=== PATIENT | female | born 1995 | race Caucasian/White ===

== ENCOUNTER 2021-04-05 10:53 | Inpatient (IN) ==
[2021-04-05] MEDS ORDERED: OXYTOCIN 30 UNITS/500 ML BAG IV PRN ×2 (11:06)
[2021-04-05] MEDS ORDERED: PATIENT'S HEIGHT AND/OR WEIGHT NEEDED SCH (11:15)
[2021-04-05 12:16] LABS: Hematocrit (blood only) 37.9 % (37-47); Mean Corpuscular Hemoglobin 32.3 pg (25-34); Mean Corpuscular Hgb Conc 34.3 g/dL (32-36); Mean Corpuscular Volume 94.3 fL (80-100); RDW Coefficient of Variation 12.9 % (11.5-14.5); RDW Standard Deviation 44.5 fL (36.4-46.3); Red Blood Count 4.02 M/uL (4.2-5.4); White Blood Count 8.28 K/uL (4.8-10.8)
[2021-04-05 12:20] LABS: Mean Platelet Volume 13.1 fL (7.4-10.4); Platelet Count 109 K/uL (130-400)
[2021-04-05 12:22] LABS: Platelet Estimate Decreased (Normal)
[2021-04-05] MEDS: LACTATED RINGER'S 1,000 ML IV PRN ×4 (13:25→23:02)
--- NOTE | 2021-04-05 13:26 | History & Physical Report ---
Date of Service April 05, 2021 Assessment & Plan (1) Encounter for supervision in primigravida, antepartum: Plan: cervical balloon placed and pitocin induction begun per protocol epidural analgesia when requested anticipate vaginal Admission and Anticipated Discharge Date Admission Date: April 05, 2021 History of Present Illness Primary Care Provider: NO PCP Patient is a 26 yo white female EDC 03/28/21 who presents at 41 1/7 weeks for induction of labor because of post term . was complicated because of IVF. Growth scans have been appropriate. GBS -negative blood type- A negative Allergies Allergy/AdvReac Type Severity Reaction Status Date / Time No Known Drug Allergies Allergy Verified 04/04/21 12:58 Home Medications Medication Instructions Recorded Confirmed Type cholecalciferol (vitamin D3) 25 25 mcg PO DAILY 08/30/20 04/05/21 History mcg (1,000 unit) capsule prenat.vits,zbigniew,hzl-rqsc-gfxev 1 tab PO DAILY 08/30/20 04/05/21 History Patient History Medical History Migraine with aura Ovarian cyst Surgical History S/P ACL repair Family History Family/Other Hypertension Mother Dyslipidemia Denies family history of Ovarian cancer Prostate cancer Myocardial infarction Breast cancer Colorectal cancer Social History (Updated 08/30/20 @ 10:03 by Eli Damian) Smoking Status: Never smoker Second Hand Exposure: No; Hx Alcohol Use: Yes Hx Substance Use: No Preferred Language: Divehi Communication Ability: Effective Fisher Purse Seine Required: No Beliefs That Will Affect Care: None marital status: marital status details: Winston (28) [phone] Current Living Situation: Spouse Current Living Situation Comment: lives with spouse, 2 dogs. 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 Other Information That Helps Us Care for You: No Feels Safe at Home: Yes Safety Concerns: Feels Safe At This Time Childhood Exposure to Second-Hand Smoke: No caffeine: Yes Dental Care, Regularly: Yes Physical Activity Frequency: 1-2 Times per Week Seatbelt Use: always Sunscreen Use: Yes Assistive Devices: None Review of Systems All systems reviewed & are unremarkable except as noted in HPI & below Physical Exam Constitutional: WD/WN, vitals as above Respiratory: normal respiratory effort, lungs clear to auscultation Cardiovascular: RRR, no murmur, no edema Psychiatric: A+Ox3, euthymic affect Genitourinary: OB Exam Abdomen: + vertex and + estimated weight (6-7 pounds) Manual OB Exam: + cervical dilation 1 cm, + cervical effacement 80% and + station 0 OB Exam Monitor Tracing: + external FHT monitor used, + external uterine monitor used, + category I and + normal FHT variability speculum exam: cervix visualized and flores catheter inserted in to the cervix easily and the balloon was filled with 40cc of water. she tolerated the procedure well. Flores catheter was expelled within 30 minutes of insertion. cervix now 3cm/90%/0 Results & Data ([facility]) Vital Signs (Past 12 Hours) Vital Signs Temp Pulse Resp BP 04/05/21 11:05 98.8 F 69 20 130/94 04/05/21 11:02 98.8 F 69 18 130/94 Code Status & VTE Plan VTE Prophylaxis Plan VTE Prophylaxis will be ordered: No Coding Level of Care Code None Diagnoses Encounter for supervision in primigravida, antepartum Z34.00
[2021-04-05] MEDS ORDERED: SODIUM CHLORIDE 0.9% INJ 10 ML VIAL ONE (18:26)
[2021-04-05] MEDS ORDERED: ePHEDrine sulfate 50 MG/ML AMP ONE (18:26)
[2021-04-05] MEDS ORDERED: fentaNYL citrate 100 MCG/2 ML VIAL ONE (18:26)
[2021-04-05] MEDS ORDERED: fentaNYL 2MCG/ML ROPIVACAINE 1.25MG/ML 100 ML BAG EPI ONE (18:27)
[2021-04-05] MEDS ORDERED: NALOXONE HCL 0.4 MG/1 ML VIAL/CARP IV PRN (19:17)
[2021-04-05] MEDS ORDERED: ONDANSETRON INJ 2 MG/ML 2 ML VIAL IV PRN (19:17)
[2021-04-05] MEDS ORDERED: diphenhydrAMINE 50 MG/ML VIAL IV PRN (19:17)
[2021-04-05] MEDS ORDERED: ePHEDrine sulfate 50 MG/ML AMP IV PRN (19:17)
[2021-04-05] MEDS ORDERED: NALOXONE HCL 1 MG in SODIUM CHLORIDE 0.9% 1000ML 1,000 ML IV PRN (19:17)
[2021-04-05] MEDS ORDERED: NALBUPHINE HCL INJ 10 MG/ML AMP IV PRN (19:17)
--- NOTE | 2021-04-05 19:17 | Anesthesiology Consultation ---
Date of Service April 05, 2021 Assessment & Plan ASA ASA2 Proposed Anesthesia Anesthesia Type: Labor Epidural Risk / Benefits Reviewed With: PT / POA / Parent / Guardian, Accepts Plan and Informed Consent Obtained History Height/Weight Height: 5 ft 2 in Weight: 64.41 kg Allergies Allergy/AdvReac Type Severity Reaction Status Date / Time No Known Drug Allergies Allergy Verified 04/04/21 12:58 Medications Home Medications Medication Instructions Recorded Confirmed Last Taken cholecalciferol (vitamin D3) 25 25 mcg PO DAILY 08/30/20 04/05/21 04/04/21 mcg (1,000 unit) capsule prenat.vits,zbigniew,lkv-hyep-bxzog 1 tab PO DAILY 08/30/20 04/05/21 04/04/21 Active Medications Generic Name Dose Route Start Last Admin Trade Name Freq PRN Reason Stop Dose Admin Oxytocin 30 units in 500 mls @ 3 mls/hr 04/05/21 11:06 04/05/21 14:08 Pitocin IV 04/07/21 11:05 0.18 units/hr .Q24H PRN 3 mls/hr Labor Induction/Augmentation Titration Protocol 0.18 UNITS/HR Lactated Ringer's 1,000 mls @ 125 mls/hr 04/05/21 11:06 04/05/21 18:57 Lr IV 04/07/21 11:05 999 mls/hr .Q8H PRN Administration L&D Protocol Protocol Past Medical History Medical History Migraine with aura Ovarian cyst Exercise / Class Metabolic Activity II 4-5 Yardwork/Stairs/Walk up hill Past Family History Family History Family/Other Hypertension Mother Dyslipidemia Denies family history of Ovarian cancer Prostate cancer Myocardial infarction Breast cancer Colorectal cancer Past Surgical History Surgical History S/P ACL repair Past Anesthesia History No Hx of Anesthesia Complications and No Family Hx of Anesthesia Complications History of PONV No Hx of PONV and No Hx of Motion Sickness Social History Smoking Status: Never smoker Hx Alcohol Use: Yes Hx Substance Use: No Review of Systems denies fever/cough/ colds/ chest pain/ SOB/ OPHELIA denies OPHELIA Physical Exam Vital Signs Last Vital Signs Temp 37 C 04/05/21 19:00 Pulse 91 H 04/05/21 19:48 Resp 18 04/05/21 19:00 BP 129/76 04/05/21 19:41 Pulse Ox 98 04/05/21 19:48 ENMT Mouth: no TMJ abnormality and no dentition abnormality Thyromental Distance: > or= 3.5 Finger Breadths Mallampati Class: II Neck neck extension not limited Respiratory normal respiratory effort; no respiratory distress Auscultation: lungs clear to auscultation bilaterally Cardiovascular Rate/Rhythm: regular rate and regular rhythm Neurologic moves all extremities Psychiatric Orientation: alert and oriented x 3 Testing Laboratory Results 04/05/21 11:22
[2021-04-05] MEDS: BUPIVACAINE 0.25% 30 ML VIAL ONE ×2 (19:34→19:38)
[2021-04-05] MEDS: fentaNYL 2MCG/ML ROPIVACAINE 1.25MG/ML 100 ML BAG EPI PRN (23:32)
[2021-04-06] MEDS: fentaNYL 2MCG/ML ROPIVACAINE 1.25MG/ML 100 ML BAG EPI PRN ×2 (00:10→04:16)
[2021-04-06] MEDS ORDERED: BUPIVACAINE 0.25% 30 ML VIAL ONE (00:34)
[2021-04-06] MEDS ORDERED: fentaNYL citrate 100 MCG/2 ML VIAL ONE (00:34)
[2021-04-06] MEDS ORDERED: SODIUM CHLORIDE 0.9% INJ 10 ML VIAL ONE (00:35)
[2021-04-06] MEDS ORDERED: ONDANSETRON INJ 2 MG/ML 2 ML VIAL IV PRN ×2 (01:08→11:51)
--- NOTE | 2021-04-06 01:10 | Communication Note ---
Date of Service: April 06, 2021 Patient stated having increasing labor pains. Patient's epidural was bolused with fentanyl 75mcg and 0.125% bupivacaine 5 mL. Patient stated having improved labor pains. VSS throughout.
[2021-04-06] MEDS: LACTATED RINGER'S 1,000 ML IV PRN ×3 (01:57→08:30)
[2021-04-06] MEDS ORDERED: CALCIUM CARBONATE 500 MG CHEWABLE TAB ONE (05:21)
[2021-04-06] MEDS ORDERED: CITRIC ACID/SODIUM CITRATE 15 ML UDC PO SCH (06:00)
--- NOTE | 2021-04-06 08:08 | Obstetrical Progress Note ---
Date of Service April 06, 2021 Assessment & Plan (1) Failed induction of labor: Plan: after pushing effectively for 3 1/2 hours through adequate contractions, with no descent of the head below 0/+1 station, we will proceed with primary LTCS consents signed after the procedure and risks were reviewed with the patient and her . Admission and Anticipated Discharge Date Admission Date: April 05, 2021 Subjective Patient progressed to full dilation and now has been pushing for 3 1/2 hours with no descent of the head. After reviewing options, C/S seems most prudent management as the vertex is still at 0/+1 station and not amenable to vaccuum assistance. Patient and her are agreeable to this plan after all of their questions were answered to their satisfaction. Review of Systems Review of Systems: All systems reviewed & are unremarkable except as noted in HPI & below Physical Exam Constitutional: WD/WN, vitals as above Psychiatric: A+Ox3, euthymic affect Genitourinary: OB Exam Abdomen: + vertex Manual OB Exam: + cervical dilation 10 cm, + cervical effacement 100% and + station 0 Results & Data ([facility]) Vital Signs (Past 12 Hours) Vital Signs Temp Pulse Resp BP Pulse Ox 04/06/21 07:58 75 97 04/06/21 07:57 88 137/95 04/06/21 07:53 84 98 04/06/21 07:48 83 97 04/06/21 07:43 77 95 04/06/21 07:41 89 126/90 04/06/21 07:38 90 95 04/06/21 07:33 83 97 04/06/21 07:28 74 97 04/06/21 07:27 107 H 131/94 04/06/21 07:23 109 H 94 04/06/21 07:18 78 97 04/06/21 07:13 72 97 04/06/21 07:11 98.6 F 69 20 131/89 04/06/21 07:08 87 97 04/06/21 07:03 98 H 97 04/06/21 06:58 91 H 96 04/06/21 06:56 83 128/91 04/06/21 06:55 101 H 83 L 04/06/21 06:53 96 H 97 04/06/21 06:48 84 96 04/06/21 06:43 94 H 96 04/06/21 06:41 87 125/90 04/06/21 06:38 74 95 04/06/21 06:33 80 97 04/06/21 06:28 94 H 97 04/06/21 06:27 111 H 128/89 04/06/21 06:23 71 95 04/06/21 06:18 74 96 04/06/21 06:13 98 H 96 04/06/21 06:11 108 H 129/86 04/06/21 06:08 109 H 97 04/06/21 06:03 87 95 04/06/21 06:00 20 04/06/21 05:58 92 H 94 04/06/21 05:56 89 136/75 04/06/21 05:53 120 H 96 04/06/21 05:48 124 H 96 04/06/21 05:45 80 88 L 04/06/21 05:43 73 95 04/06/21 05:41 82 131/89 04/06/21 05:38 105 H 94 04/06/21 05:33 82 96 04/06/21 05:30 24 04/06/21 05:28 94 H 97 04/06/21 05:26 75 132/81 04/06/21 05:23 95 H 95 04/06/21 05:18 86 97 04/06/21 05:13 87 96 04/06/21 05:12 101 H 140/84 04/06/21 05:08 105 H 95 04/06/21 05:03 90 96 04/06/21 05:00 98.4 F 04/06/21 04:58 78 96 04/06/21 04:56 75 132/85 04/06/21 04:53 89 96 04/06/21 04:48 72 96 04/06/21 04:43 75 96 04/06/21 04:41 80 133/83 04/06/21 04:38 115 H 96 04/06/21 04:36 117 H 139/82 04/06/21 04:33 139 H 96 04/06/21 04:30 22 04/06/21 04:28 92 H 96 04/06/21 04:23 103 H 97 04/06/21 04:19 88 133/81 04/06/21 04:18 83 98 04/06/21 04:15 100 H 146/70 H 04/06/21 04:13 80 97 04/06/21 04:09 82 134/77 04/06/21 04:08 81 98 04/06/21 04:04 83 125/87 04/06/21 04:03 86 97 04/06/21 03:59 72 134/87 04/06/21 03:58 72 96 04/06/21 03:53 73 132/86 96 04/06/21 03:48 71 142/89 H 97 04/06/21 03:44 67 133/86 04/06/21 03:43 68 138/91 96 04/06/21 03:39 68 139/85 04/06/21 03:38 70 96 04/06/21 03:35 83 136/95 04/06/21 03:33 80 96 04/06/21 03:30 20 04/06/21 03:28 70 129/84 97 04/06/21 03:25 63 138/80 04/06/21 03:23 76 95 04/06/21 03:18 72 131/85 97 04/06/21 03:14 71 131/83 04/06/21 03:13 69 95 04/06/21 03:11 98.2 F 04/06/21 03:08 86 127/84 97 04/06/21 03:04 70 144/93 H 04/06/21 03:03 75 97 04/06/21 03:00 18 04/06/21 02:58 78 146/97 H 98 04/06/21 02:54 71 142/90 H 04/06/21 02:53 72 97 04/06/21 02:48 79 137/87 96 04/06/21 02:44 73 135/86 04/06/21 02:43 75 96 04/06/21 02:38 87 139/86 96 04/06/21 02:33 89 97 04/06/21 02:30 20 04/06/21 02:28 83 142/93 H 100 04/06/21 02:23 77 96 04/06/21 02:20 69 135/86 04/06/21 02:18 69 96 04/06/21 02:14 69 139/90 04/06/21 02:13 70 97 04/06/21 02:09 71 142/90 H 04/06/21 02:08 69 95 04/06/21 02:04 67 134/84 04/06/21 02:03 68 95 04/06/21 02:01 73 93 04/06/21 02:00 18 04/06/21 01:59 75 132/92 04/06/21 01:58 70 98 04/06/21 01:54 67 149/94 H 04/06/21 01:53 68 98 04/06/21 01:48 71 147/98 H 97 04/06/21 01:43 79 149/96 H 99 04/06/21 01:38 67 139/91 97 04/06/21 01:34 63 147/88 H 04/06/21 01:33 68 99 04/06/21 01:31 67 135/89 04/06/21 01:30 20 04/06/21 01:28 73 97 04/06/21 01:24 74 141/97 H 04/06/21 01:23 75 96 04/06/21 01:18 76 132/90 95 04/06/21 01:14 78 140/95 04/06/21 01:13 85 97 04/06/21 01:09 81 135/93 04/06/21 01:08 86 97 04/06/21 01:03 90 138/98 98 04/06/21 01:00 18 04/06/21 00:58 72 96 04/06/21 00:55 83 142/74 H 04/06/21 00:53 83 97 04/06/21 00:50 97.9 F 04/06/21 00:49 65 146/85 H 04/06/21 00:48 69 99 04/06/21 00:43 67 135/88 98 04/06/21 00:39 67 127/78 04/06/21 00:38 73 96 04/06/21 00:33 72 126/81 99 04/06/21 00:30 22 04/06/21 00:28 68 124/70 96 04/06/21 00:24 92 H 154/106 H 04/06/21 00:23 93 H 98 04/06/21 00:19 82 144/85 H 04/06/21 00:18 83 97 04/06/21 00:13 79 97 04/06/21 00:09 67 139/93 04/06/21 00:08 77 98 04/06/21 00:04 74 136/93 04/06/21 00:03 73 97 04/06/21 00:00 18 04/05/21 23:58 93 H 137/92 96 04/05/21 23:54 71 144/93 H 04/05/21 23:53 73 98 04/05/21 23:49 79 135/91 04/05/21 23:48 77 97 04/05/21 23:43 85 139/83 97 04/05/21 23:39 75 122/78 04/05/21 23:38 79 99 04/05/21 23:34 70 126/78 04/05/21 23:33 74 97 04/05/21 23:30 20 04/05/21 23:28 77 123/73 97 04/05/21 23:27 97 H 122/77 04/05/21 23:23 92 H 97 04/05/21 23:18 80 98 04/05/21 23:13 78 128/89 98 04/05/21 23:09 69 133/90 04/05/21 23:08 74 98 04/05/21 23:04 72 130/85 04/05/21 23:03 73 99 04/05/21 22:58 93 H 98 04/05/21 22:53 81 99 04/05/21 22:49 67 134/94 04/05/21 22:48 65 99 04/05/21 22:44 68 141/91 H 04/05/21 22:43 72 98 04/05/21 22:39 82 142/92 H 04/05/21 22:38 72 97 04/05/21 22:34 122 H 138/96 04/05/21 22:33 120 H 97 04/05/21 22:30 16 04/05/21 22:28 80 134/83 99 04/05/21 22:24 88 132/88 04/05/21 22:23 68 98 04/05/21 22:20 65 125/85 04/05/21 22:18 66 98 04/05/21 22:13 71 129/86 98 04/05/21 22:09 75 128/79 04/05/21 22:08 69 98 04/05/21 22:04 75 137/92 04/05/21 22:03 75 99 04/05/21 22:00 18 04/05/21 21:59 67 126/85 04/05/21 21:58 68 98 04/05/21 21:53 66 125/85 99 04/05/21 21:49 69 128/89 04/05/21 21:48 70 98 04/05/21 21:43 88 127/91 97 04/05/21 21:38 68 132/87 99 04/05/21 21:34 86 134/92 04/05/21 21:33 70 99 04/05/21 21:30 16 04/05/21 21:29 63 129/85 04/05/21 21:28 63 100 04/05/21 21:23 65 122/87 100 04/05/21 21:19 63 121/85 04/05/21 21:18 63 98 04/05/21 21:14 75 124/89 04/05/21 21:13 72 142/100 H 98 04/05/21 21:09 98.2 F 04/05/21 21:08 65 131/86 99 04/05/21 21:04 64 126/82 04/05/21 21:03 64 100 04/05/21 21:00 20 04/05/21 20:59 64 130/82 04/05/21 20:58 65 99 04/05/21 20:54 63 128/83 04/05/21 20:53 63 98 04/05/21 20:49 62 126/84 04/05/21 20:48 62 98 04/05/21 20:43 72 124/85 98 04/05/21 20:38 77 141/84 H 98 04/05/21 20:34 117 H 143/87 H 04/05/21 20:33 102 H 99 04/05/21 20:30 20 04/05/21 20:29 65 135/80 04/05/21 20:28 63 99 04/05/21 20:24 66 126/81 04/05/21 20:23 66 98 04/05/21 20:19 64 125/80 04/05/21 20:18 64 99 04/05/21 20:13 66 136/77 99 04/05/21 20:09 79 153/97 H 04/05/21 20:08 71 99 04/05/21 20:04 83 136/88 04/05/21 20:03 95 H 99 PG Care Time/CCT Total # of Minutes Spent Total Time Spent with Patient: Total time spent is greater than 50% in coordin ation of care (as documented) at patient's floor/unit and/or counseling patient: Coding Level of Care Code None Diagnoses Failed induction of labor O61.9
[2021-04-06] MEDS ORDERED: ceFAZolin 2000MG 2,000 MG/15 ML SYR IV SCH (08:30)
--- NOTE | 2021-04-06 08:56 | Communication Note ---
Date of Service: April 06, [address] Francisco. She is aware I am assuming care. Ts categ 1. She is comfortable. She has pushed for 3.5hr and no descent and wants to proceed with c/s at this point. OR being readied and she denies questions.
[2021-04-06] MEDS ORDERED: MoRPHine SULFATE PF 1 MG/ML 10 ML AMP/VIAL ONE (09:45)
[2021-04-06] MEDS ORDERED: ONDANSETRON INJ 2 MG/ML 2 ML VIAL ONE (10:41)
[2021-04-06] MEDS ORDERED: LIDOCAINE 2%/EPINEPHRINE 1:200,000 20 ML SDV ONE (10:41)
[2021-04-06] MEDS ORDERED: KETOROLAC 30 MG/ML VIAL ONE (10:41)
--- NOTE | 2021-04-06 10:41 | Post Operative Brief Note ---
PG Immediate Post Op with CF Date of Surgery April 06, 2021 Pre & Post Diagnosis Operation Date: 04/06/21 09:05 Pre-Op Diagnosis: 41 weeks iup, Induction of labor, Arrest of descent Post-Op Diagnosis: Same as pre-op I identified the patient and participated in the time-out.: Yes Procedure Operation Date: 04/06/21 09:05 Actual Procedures p Primary Low Transverse Section in LD; Delivery of live female child at 1002 (Main OR #3)(Bilateral) - Beata Knapp MD, FACOG Surgeon Beata Knapp MD, FACOG Construction Contractor Maryam Estimated Blood Loss 500 Findings Consistent with Post-Op Diagnosis (viable female apgars 8,9 normal uterus, tubes and ovaries bilaterally. LOP position, nuchal x 2. ) Fluids 1500 Specimens Specimen Description: Placenta-hold Cord Blood Drains Brian Catheter (Inserted in LD prior to patient coming to OR. Patent and draining concentrated yellow urine throughout procedure.) Anesthesia Type Spinal Complications none Disposition Accompanied Patient To Recovery: No Disposition: L&D
[2021-04-06] MEDS ORDERED: BENZOCAINE 20% AER SPR 82.5 GM CAN EXT PRN (11:35)
[2021-04-06] MEDS ORDERED: MAGNESIUM HYDROXIDE SUSP 30 ML UDC PO PRN (11:35)
[2021-04-06] MEDS ORDERED: SENNA 8.6 MG TAB PO PRN (11:35)
[2021-04-06] MEDS ORDERED: SUPERCREAM 0.870% 15 GM JAR EXT PRN (11:35)
[2021-04-06] MEDS ORDERED: HYDROCORTISONE ACETATE 25 MG SUPP PR PRN (11:35)
[2021-04-06] MEDS ORDERED: LACTATED RINGER'S 1,000 ML IV SCH (11:35)
[2021-04-06] MEDS ORDERED: DIPHTHERIA/TETANUS/PERTUSSIS 0.5 ML SYR/VIAL IM ONE (11:35)
--- NOTE | 2021-04-06 11:42 | Operative Report ---
PG Post Operative Report Pre & Post Diagnosis Operation Date: 04/06/21 09:05 Pre-Op Diagnosis: 1. 41+wk iup 2. induction of labor 3. Arrest of descent Post-Op Diagnosis: Same as pre-op I identified the patient and participated in the time-out.: Yes Procedure Operation Date: 04/06/21 09:05 Primary Low Transverse Section. Surgeon Beata Knapp MD, FACOG Interior Assemblies Developer [employer] Maryam Estimated Blood Loss 500 Findings Consistent with Post-Op Diagnosis (viable female apgars 8,9 normal uterus, tubes and ovaries bilaterally. LOP position, nuchal x 2. ) Fluids 1500 Specimens placenta, hold, cord blood sent Drains flores Anesthesia Type Spinal Complications none Disposition Accompanied Patient To Recovery: No Disposition: L&D Indications 26yo at 41+wks mark was admitted yesterday for planned induction due to postdates. She progressd to complete and was pushing since am of day of delivery. Unfortunately after 3.5hrs of pushing, no descent of station noted, still 0 station. Counseled for recommendation for section and she and partner agreed. Description of Procedure The patient was taken to the operating room and identified. After adequate anesthesia was obtained, she was placed in the supine position with a leftward tilt on the operating table and prepped and draped in the usual sterile fashion. A flores catheter had already been placed. The knife was used to create a Pfannensteil skin incision that was carried down to the underlying layer of fascia. The fascia was nicked in the midline and this opening was extended laterally using Kelly scissors. Obed clamps were placed on the superior and inferior aspect of the fascial incision tenting it upward and the underlying rectus muscles were dissected off the overlying fascia both sharply and bluntly using Kelly scissors. The rectus muscles were bluntly in the midline. The peritoneal cavity was bluntly entered into. This opening was stretched. The bladder blade was placed. The vesicouterine peritoneum was elevated and opened up into and the bladder flap was created digitally and bladder blade was replaced. The knife was used to create a hysterotomy and this opening was stretched. The operators hand was placed through the hysterotomy and the bladder blade was removed. The head was elevated and flexed and with fundal pressure the head was delivered. The shoulders and body were rapidly delivered. The cord was clamped and cut and the infant's mouth and nares were bulb suction. The infant was handed off to the awaiting pediatricians. Cord blood was obtained. The placenta was manually expressed. The uterus was exteriorized and cleared of all clots and debris. Dilute IV Pitocin was begun. The uterine tone was improving. The hysterotomy was closed in a running interlocking fashion using 0 Vicryl followed by a second imbricating layer of 0 Vicryl. The hysterotomy was not hemostatic. Figure of eight sutures of 2-0 vicryl were placed left of midline and hemostasis was then adequate. The pelvis was suctioned. The uterus was returned to the abdomen. The gutters were cleared of all clots and debris. The hysterotomy was reinspected and noted to be hemostatic. The fascia was then closed in running fashion using 0 Vicryl. The subcutaneous fat was copiously irrigated and reapproximated using 2-0 chromic. The skin was closed in a subcuticular fashion using 4-0 Vicryl. Dermabond was applied. At this point the procedure was terminated. The patient was transferred to the recovery room in stable condition. All sponge, lap and needle counts are correct x2. I attest to the content of the Intraoperative Record and any orders documented therein. Any exceptions are noted below. OB Procedure charges OB Charges [id number] C/S
[2021-04-06] MEDS ORDERED: NALOXONE HCL 0.4 MG/1 ML VIAL/CARP IV PRN (11:51)
[2021-04-06] MEDS ORDERED: LACTATED RINGER'S 500 ML IV PRN (11:51)
[2021-04-06] MEDS ORDERED: diphenhydrAMINE 50 MG/ML VIAL IV PRN (11:51)
[2021-04-06] MEDS ORDERED: MoRPHine SULFATE 2 MG/ML CARP IV PRN (11:51)
[2021-04-06] MEDS ORDERED: HYDROmorphone INJ 0.5 MG/0.5 ML SYR IV PRN (11:51)
[2021-04-06] MEDS ORDERED: NALOXONE HCL 0.08 MG in SYRINGE 1.8 ML IV PRN (11:51)
[2021-04-06] MEDS ORDERED: MoRPHine SULFATE PF 1 MG/ML 10 ML AMP/VIAL INT SPINAL ONE (11:51)
[2021-04-06] MEDS ORDERED: NALBUPHINE HCL INJ 10 MG/ML AMP IV PRN (11:51)
[2021-04-06] MEDS ORDERED: ePHEDrine sulfate 50 MG/ML AMP IV PRN (11:51)
[2021-04-06] MEDS ORDERED: MEPERIDINE HCL 25 MG/ML CARP/VIAL IV PRN (11:51)
[2021-04-06] MEDS ORDERED: NALOXONE HCL 1 MG in SODIUM CHLORIDE 0.9% 1000ML 1,000 ML IV PRN (11:51)
[2021-04-06] MEDS ORDERED: PROMETHAZINE HCL 6.25 MG in SODIUM CHLORIDE 0.9% 50 ML IV PRN (11:51)
--- NOTE | 2021-04-06 11:53 | Anesthesia Procedure Note ---
Date of Service April 06, 2021 Anesthesia Post Epidural Note Vital Signs Vital Signs: Temp Pulse Resp BP Pulse Ox 36.9 C 80 16 139/87 96 04/06/21 10:50 04/06/21 11:51 04/06/21 11:41 04/06/21 11:51 04/06/21 11:48 Pain Intensity Bilateral Abdomen: Pain Intensity: 3 Notes Mental Status: alert / awake / arousable Nausea / Vomiting: adequately controlled Pain: adequately controlled Airway Patency, RR, SpO2: stable & adequate BP & HR: stable & adequate Hydration State: stable & adequate Neuraxial Anesthesia: was administered and sensory block is resolving Anesthetic Complications: no major complications apparent and Pt Satisfied with anesthetic care Epidural: Removed without complications and With tip intact
--- NOTE | 2021-04-06 11:54 | Anesthesiology Progress Note ---
Date of Service April 06, 2021 Anesthesia Post Procedure Vital Signs Vital Signs: Temp Pulse Pulse Resp BP BP Pulse Ox 04/06/21 11:51 80 139/87 04/06/21 11:48 88 96 04/06/21 11:43 70 97 04/06/21 11:41 73 16 130/82 04/06/21 11:38 84 98 04/06/21 11:33 79 98 04/06/21 11:31 83 16 125/79 04/06/21 11:28 81 97 04/06/21 11:23 82 98 04/06/21 11:22 86 20 134/84 04/06/21 11:18 91 H 98 04/06/21 11:13 79 98 04/06/21 11:11 81 20 122/68 98 04/06/21 11:08 83 98 04/06/21 11:03 84 83 20 120/73 120/73 98 04/06/21 10:58 87 97 04/06/21 10:53 86 98 04/06/21 10:51 88 129/75 04/06/21 10:50 36.9 C 85 20 129/75 04/06/21 09:18 89 97 04/06/21 09:13 77 97 04/06/21 09:11 80 136/94 04/06/21 09:08 83 97 04/06/21 09:03 86 97 04/06/21 08:58 91 H 97 04/06/21 08:56 93 H 146/106 H 04/06/21 08:53 98 H 97 04/06/21 08:41 36.9 C 78 20 138/93 04/06/21 08:26 80 144/97 H 04/06/21 08:15 75 139/98 04/06/21 07:58 75 97 04/06/21 07:57 88 137/95 04/06/21 07:53 84 98 04/06/21 07:48 83 97 04/06/21 07:43 77 95 04/06/21 07:41 89 126/90 04/06/21 07:38 90 95 04/06/21 07:33 83 97 04/06/21 07:28 74 97 04/06/21 07:27 107 H 131/94 04/06/21 07:23 109 H 94 04/06/21 07:18 78 97 04/06/21 07:13 72 97 04/06/21 07:11 37 C 69 20 131/89 04/06/21 07:08 87 97 04/06/21 07:03 98 H 97 04/06/21 06:58 91 H 96 04/06/21 06:56 83 128/91 04/06/21 06:55 101 H 83 L 04/06/21 06:53 96 H 97 04/06/21 06:48 84 96 04/06/21 06:43 94 H 96 04/06/21 06:41 87 125/90 04/06/21 06:38 74 95 04/06/21 06:33 80 97 04/06/21 06:28 94 H 97 04/06/21 06:27 111 H 128/89 04/06/21 06:23 71 95 04/06/21 06:18 74 96 04/06/21 06:13 98 H 96 04/06/21 06:11 108 H 129/86 04/06/21 06:08 109 H 97 04/06/21 06:03 87 95 04/06/21 06:00 20 04/06/21 05:58 92 H 94 04/06/21 05:56 89 136/75 04/06/21 05:53 120 H 96 04/06/21 05:48 124 H 96 04/06/21 05:45 80 88 L 04/06/21 05:43 73 95 04/06/21 05:41 82 131/89 04/06/21 05:38 105 H 94 04/06/21 05:33 82 96 04/06/21 05:30 24 04/06/21 05:28 94 H 97 04/06/21 05:26 75 132/81 04/06/21 05:23 95 H 95 04/06/21 05:18 86 97 04/06/21 05:13 87 96 04/06/21 05:12 101 H 140/84 04/06/21 05:08 105 H 95 04/06/21 05:03 90 96 04/06/21 05:00 36.9 C 22 04/06/21 04:58 78 96 04/06/21 04:56 75 132/85 04/06/21 04:53 89 96 04/06/21 04:48 72 96 04/06/21 04:43 75 96 04/06/21 04:41 80 133/83 04/06/21 04:38 115 H 96 04/06/21 04:36 117 H 139/82 04/06/21 04:33 139 H 96 04/06/21 04:30 22 04/06/21 04:28 92 H 96 04/06/21 04:23 103 H 97 04/06/21 04:19 88 133/81 04/06/21 04:18 83 98 04/06/21 04:15 100 H 146/70 H 04/06/21 04:13 80 97 04/06/21 04:09 82 134/77 04/06/21 04:08 81 98 04/06/21 04:04 83 125/87 04/06/21 04:03 86 97 04/06/21 03:59 72 134/87 04/06/21 03:58 72 96 04/06/21 03:53 73 132/86 96 04/06/21 03:48 71 142/89 H 97 04/06/21 03:44 67 133/86 04/06/21 03:43 68 138/91 96 04/06/21 03:39 68 139/85 04/06/21 03:38 70 96 04/06/21 03:35 83 136/95 04/06/21 03:33 80 96 04/06/21 03:30 20 04/06/21 03:28 70 129/84 97 04/06/21 03:25 63 138/80 04/06/21 03:23 76 95 04/06/21 03:18 72 131/85 97 04/06/21 03:14 71 131/83 04/06/21 03:13 69 95 04/06/21 03:11 36.8 C 04/06/21 03:08 86 127/84 97 04/06/21 03:04 70 144/93 H 04/06/21 03:03 75 97 04/06/21 03:00 18 04/06/21 02:58 78 146/97 H 98 04/06/21 02:54 71 142/90 H 04/06/21 02:53 72 97 04/06/21 02:48 79 137/87 96 04/06/21 02:44 73 135/86 04/06/21 02:43 75 96 04/06/21 02:38 87 139/86 96 04/06/21 02:33 89 97 04/06/21 02:30 20 04/06/21 02:28 83 142/93 H 100 04/06/21 02:23 77 96 04/06/21 02:20 69 135/86 04/06/21 02:18 69 96 04/06/21 02:14 69 139/90 04/06/21 02:13 70 97 04/06/21 02:09 71 142/90 H 04/06/21 02:08 69 95 04/06/21 02:04 67 134/84 04/06/21 02:03 68 95 04/06/21 02:01 73 93 04/06/21 02:00 18 04/06/21 01:59 75 132/92 04/06/21 01:58 70 98 04/06/21 01:54 67 149/94 H 04/06/21 01:53 68 98 04/06/21 01:48 71 147/98 H 97 04/06/21 01:43 79 149/96 H 99 04/06/21 01:38 67 139/91 97 04/06/21 01:34 63 147/88 H 04/06/21 01:33 68 99 04/06/21 01:31 67 135/89 04/06/21 01:30 20 04/06/21 01:28 73 97 04/06/21 01:24 74 141/97 H 04/06/21 01:23 75 96 04/06/21 01:18 76 132/90 95 04/06/21 01:14 78 140/95 04/06/21 01:13 85 97 04/06/21 01:09 81 135/93 04/06/21 01:08 86 97 04/06/21 01:03 90 138/98 98 04/06/21 01:00 18 04/06/21 00:58 72 96 04/06/21 00:55 83 142/74 H 04/06/21 00:53 83 97 04/06/21 00:50 36.6 C 04/06/21 00:49 65 146/85 H 04/06/21 00:48 69 99 04/06/21 00:43 67 135/88 98 04/06/21 00:39 67 127/78 04/06/21 00:38 73 96 04/06/21 00:33 72 126/81 99 04/06/21 00:30 22 04/06/21 00:28 68 124/70 96 04/06/21 00:24 92 H 154/106 H 04/06/21 00:23 93 H 98 04/06/21 00:19 82 144/85 H 04/06/21 00:18 83 97 04/06/21 00:13 79 97 04/06/21 00:09 67 139/93 04/06/21 00:08 77 98 04/06/21 00:04 74 136/93 04/06/21 00:03 73 97 04/06/21 00:00 18 04/05/21 23:58 93 H 137/92 96 04/05/21 23:54 71 144/93 H 04/05/21 23:53 73 98 04/05/21 23:49 79 135/91 04/05/21 23:48 77 97 04/05/21 23:43 85 139/83 97 04/05/21 23:39 75 122/78 04/05/21 23:38 79 99 04/05/21 23:34 70 126/78 04/05/21 23:33 74 97 04/05/21 23:30 20 04/05/21 23:28 77 123/73 97 04/05/21 23:27 97 H 122/77 04/05/21 23:23 92 H 97 04/05/21 23:18 80 98 04/05/21 23:13 78 128/89 98 04/05/21 23:09 69 133/90 04/05/21 23:08 74 98 04/05/21 23:04 72 130/85 04/05/21 23:03 73 99 04/05/21 22:58 93 H 98 04/05/21 22:53 81 99 04/05/21 22:49 67 134/94 04/05/21 22:48 65 99 04/05/21 22:44 68 141/91 H 04/05/21 22:43 72 98 04/05/21 22:39 82 142/92 H 04/05/21 22:38 72 97 04/05/21 22:34 122 H 138/96 04/05/21 22:33 120 H 97 04/05/21 22:30 16 04/05/21 22:28 80 134/83 99 04/05/21 22:24 88 132/88 04/05/21 22:23 68 98 04/05/21 22:20 65 125/85 04/05/21 22:18 66 98 04/05/21 22:13 71 129/86 98 04/05/21 22:09 75 128/79 04/05/21 22:08 69 98 04/05/21 22:04 75 137/92 04/05/21 22:03 75 99 04/05/21 22:00 18 04/05/21 21:59 67 126/85 04/05/21 21:58 68 98 04/05/21 21:53 66 125/85 99 04/05/21 21:49 69 128/89 04/05/21 21:48 70 98 04/05/21 21:43 88 127/91 97 04/05/21 21:38 68 132/87 99 04/05/21 21:34 86 134/92 04/05/21 21:33 70 99 04/05/21 21:30 16 04/05/21 21:29 63 129/85 04/05/21 21:28 63 100 04/05/21 21:23 65 122/87 100 04/05/21 21:19 63 121/85 04/05/21 21:18 63 98 04/05/21 21:14 75 124/89 04/05/21 21:13 72 142/100 H 98 04/05/21 21:09 36.8 C 04/05/21 21:08 65 131/86 99 04/05/21 21:04 64 126/82 04/05/21 21:03 64 100 04/05/21 21:00 20 04/05/21 20:59 64 130/82 04/05/21 20:58 65 99 04/05/21 20:54 63 128/83 04/05/21 20:53 63 98 04/05/21 20:49 62 126/84 04/05/21 20:48 62 98 04/05/21 20:43 72 124/85 98 04/05/21 20:38 77 141/84 H 98 04/05/21 20:34 117 H 143/87 H 04/05/21 20:33 102 H 99 04/05/21 20:30 20 04/05/21 20:29 65 135/80 04/05/21 20:28 63 99 04/05/21 20:24 66 126/81 04/05/21 20:23 66 98 04/05/21 20:19 64 125/80 04/05/21 20:18 64 99 04/05/21 20:13 66 136/77 99 04/05/21 20:09 79 153/97 H 04/05/21 20:08 71 99 04/05/21 20:04 83 136/88 04/05/21 20:03 95 H 99 04/05/21 20:00 16 04/05/21 19:58 78 140/89 99 04/05/21 19:53 71 134/85 98 04/05/21 19:50 77 140/85 04/05/21 19:48 91 H 98 04/05/21 19:43 76 99 04/05/21 19:41 73 129/76 04/05/21 19:39 76 128/74 04/05/21 19:38 75 99 04/05/21 19:35 76 123/73 04/05/21 19:33 88 98 04/05/21 19:28 90 99 04/05/21 19:23 92 H 100 04/05/21 19:18 78 100 04/05/21 19:13 68 99 04/05/21 19:08 70 99 04/05/21 19:03 73 136/95 99 04/05/21 19:00 37 C 70 18 145/93 H 04/05/21 18:58 74 99 04/05/21 18:53 74 99 04/05/21 18:48 74 100 04/05/21 18:43 74 100 04/05/21 18:38 74 100 04/05/21 18:33 75 100 04/05/21 18:28 77 100 04/05/21 18:23 84 100 04/05/21 18:17 78 131/84 04/05/21 17:12 70 18 124/82 04/05/21 16:02 75 18 133/85 04/05/21 15:06 37.0 C 70 20 126/92 04/05/21 14:09 68 133/93 04/05/21 14:08 20 04/05/21 13:25 37.0 C 67 20 127/92 Pain Intensity Bilateral Abdomen: Pain Intensity: 3 Transfer of Care Handoff Completed per policy Notes Mental Status: alert / awake / arousable Nausea / Vomiting: adequately controlled Pain: adequately controlled Airway Patency, RR, SpO2: stable & adequate BP & HR: stable & adequate Hydration State: stable & adequate Neuraxial Anesthesia: was administered and sensory block is resolving Anesthetic Complications: no major complications apparent and Pt Satisfied with anesthetic care
[2021-04-06] MEDS ORDERED: DC INTRASPINAL MORPHINE SCH (12:00)
[2021-04-06] MEDS ORDERED: NO NARCOTICS OR SEDATIVES SCH (12:00)
[2021-04-06] MEDS ORDERED: SODIUM CHLORIDE 0.9% 1000ML 1,000 ML IV SCH (12:00)
[2021-04-06] MEDS: OXYTOCIN 20 UNITS in LACTATED RINGER'S 1,000 ML IV SCH ×2 (13:26→22:03)
[2021-04-06] MEDS: SIMETHICONE 80 MG CHEW PO SCH ×3 (15:47→21:31)
[2021-04-06] MEDS: KETOROLAC 30 MG/ML VIAL IV PRN (19:18)
[2021-04-06] MEDS: DOCUSATE SODIUM 100 MG CAP PO SCH (21:31)
[2021-04-07] MEDS: KETOROLAC 30 MG/ML VIAL IV PRN (01:22)
[2021-04-07] MEDS ORDERED: diphenhydrAMINE Capsule 25 MG CAP PO PRN (05:54)
[2021-04-07] MEDS ORDERED: ONDANSETRON INJ 2 MG/ML 2 ML VIAL IV PRN (05:54)
[2021-04-07] MEDS ORDERED: PROMETHAZINE HCL 25 MG in SODIUM CHLORIDE 0.9% 50 ML IV PRN (05:54)
[2021-04-07] MEDS ORDERED: oxyCODONE/ACETAMINOPHEN 5mg/325mg TAB PO PRN (05:54)
[2021-04-07] MEDS ORDERED: diphenhydrAMINE 50 MG/ML VIAL IV PRN (05:54)
--- NOTE | 2021-04-07 06:12 | Obstetrical Progress Note ---
Date of Service <Mendez Campos MD - Last Filed: 04/07/21 07:16> April 07, 2021 Assessment & Plan <Mendez Campos MD - Last Filed: 04/07/21 07:16> (1) Delivery by section: 26 yo POD1 from [facility] at 41w2d after arrest of descent, complicated by IVF -Continue routine care -Vitals reviewed- HDS, afebrile -Blood type A-, GBS-, Rubella immune -Encourage ambulation -Pain control with Motrin, Percocet PRN -Regular diet, monitor bowel function -Monitor lochia -Encourage -Hgb 13, Plts 109 -F/u in 6 weeks with OB <Beata Knapp MD, FACOG - Last Filed: 04/07/21 07:39> (1) Delivery by section: Subjective <Mendez Campos MD - Last Filed: 04/07/21 07:16> Ambulation: ambulating normally Voiding: no voiding problems Passing Gas:: Yes Diet Tolerance:: regular diet Lochia:: Moderate Feeding Type:: breast feeding Current Pain Level(1-10): 5 Pt and baby doing well, no acute events or complaints. Has not passed BM yet. Reports soreness around incision site, relieved by pain medication. Review of Systems Denies fevers/chills. Denies dyspnea, cough. Denies chest pain. Denies breast pain or discharge. Denies dysuria. Denies headache. Physical Exam <Mendez Campos MD - Last Filed: 04/07/21 07:16> General: Alert, oriented, no acute distress Cardiac: Regular rate and rhythm, normal S1, S2. No murmurs appreciated. Respiratory: Clear to auscultation b/l with good air flow entry, symmetric chest rise and fall. No wheezes or crackles. No increased work of breathing or accessory muscle use Abdomen: Soft, nontender, nondistended. Fundus firm and palpable at 2 cm below umbilicus. Surgical incision clean, dry and intact without erythema, warmth or drainage. Bowel sounds appreciated. No guarding or rebound. Skin: No rashes or lesions Extremities: Warm, dry, well-perfused with capillary refill <2s b/l. No lower extremity edema, erythema or swelling. Negative Bayron's sign b/l. Results & Data ([facility]) <Mendez Campos MD - Last Filed: 04/07/21 07:16> Vital Signs (Past 12 Hours) Vital Signs Temp Pulse Resp BP Pulse Ox 04/07/21 04:00 36.3 C L 68 18 125/80 92 04/07/21 02:27 18 91 04/07/21 01:30 18 90 04/07/21 00:15 36.8 C 95 H 18 126/83 92 04/06/21 23:00 18 92 04/06/21 22:00 18 92 04/06/21 21:00 18 92 04/06/21 20:00 37.1 C 76 18 130/69 92 04/06/21 19:15 18 92 <Beata Knapp MD, FACOG - Last Filed: 04/07/21 07:39> Co-Signing Physician Notes Resident Physician Supervision Note: I was present with Dr. Campos during the history and exam. I discussed the case with the resident and agree with the findings and plan as documented in the note. Any exceptions or clarifications are listed here: doing well this am, denies cp/sob/n/v, ate some last pm. voided x 1 thus far. +flatus. pain control adeq with pain meds, mostly incisional. af vss, ff 2 down mod appro tender, incision c/d/i with dermabond. ext nt calves. pod#1 s/p LTCS. doing well. routine care. rh neg, baby rh neg. adv diet, ambulate, po pain meds. await more voids. Documented By: Beata Knapp MD, FACOG Resident Activity Tracking <Mendez Campos MD - Last Filed: 04/07/21 07:16> Resident Involvement: Resident Care Provided Care Provided: OB Delivery
[2021-04-07] MEDS: IBUPROFEN 600 MG TAB PO PRN ×3 (06:36→16:57)
[2021-04-07 07:08] LABS: Basophils # (auto) 0.02 K/uL (0-0.2); Basophils % (auto) 0.1 %; Eosinophils # (auto) 0.03 K/uL (0-0.5); Eosinophils % (auto) 0.2 %; Hematocrit (blood only) 35.5 % (37-47); Hemoglobin 12.1 g/dL (12.0-16.0); Immature Granulocytes # (auto) 0.05 K/uL (0.00-0.02); Immature Granulocytes % (auto) 0.3 %; Lymphocytes # (auto) 2.01 K/uL (1.2-3.4); Lymphocytes % (auto) 12.7 %; Mean Corpuscular Hemoglobin 32.4 pg (25-34); Mean Corpuscular Hgb Conc 34.1 g/dL (32-36); Mean Corpuscular Volume 95.2 fL (80-100); Mean Platelet Volume 12.9 fL (7.4-10.4); Monocytes # (auto) 1.35 K/uL (0.11-0.59); Monocytes % (auto) 8.5 %; Neutrophils # (auto) 12.35 K/uL (1.4-6.5); Neutrophils % (auto) 78.2 %; Platelet Count 105 K/uL (130-400); Platelet Estimate Decreased (Normal); RDW Coefficient of Variation 12.9 % (11.5-14.5); RDW Standard Deviation 44.8 fL (36.4-46.3); Red Blood Count 3.73 M/uL (4.2-5.4); White Blood Count 15.81 K/uL (4.8-10.8)
[2021-04-07] MEDS: PRENATAL VITAMIN 1 TAB PO SCH (09:19)
[2021-04-07] MEDS: SIMETHICONE 80 MG CHEW PO SCH ×4 (09:19→20:32)
[2021-04-07] MEDS: FERROUS SULFATE 325 MG TAB PO SCH (09:19)
[2021-04-07] MEDS: DOCUSATE SODIUM 100 MG CAP PO SCH ×2 (09:19→20:32)
[2021-04-07] MEDS ORDERED: bisacodyL 5 MG TABEC PO SCH (20:00)
[2021-04-08] MEDS: IBUPROFEN 600 MG TAB PO PRN ×5 (02:32→20:11)
--- NOTE | 2021-04-08 05:46 | Obstetrical Progress Note ---
Date of Service <Mendez Campos MD - Last Filed: 04/08/21 07:23> April 08, 2021 Assessment & Plan <Mendez Campos MD - Last Filed: 04/08/21 07:23> (1) Delivery by section: 26 yo POD2 from [facility] at 41w2d after arrest of descent, complicated by IVF -Continue routine care, anticipated discharge tomorrow -Vitals reviewed- HDS, afebrile -Blood type A-, GBS-, Rubella immune -Pain control with Motrin, Percocet PRN -Regular diet -Encourage -Hgb 10.2, asymptomatic -F/u in 6 weeks with OB <Reina Mcclain MD - Last Filed: 04/08/21 07:19> (1) Delivery by section: Subjective <Mendez Campos MD - Last Filed: 04/08/21 07:23> Ambulation: ambulating normally Voiding: no voiding problems Passing Gas:: Yes Diet Tolerance:: regular diet Lochia:: Moderate Feeding Type:: breast feeding Current Pain Level(1-10): 5 Pt and baby doing well, no acute events or complaints. Has not passed BM yet. Reports soreness around incision site, relieved by pain medication. Review of Systems Denies fevers/chills. Denies dyspnea, cough. Denies chest pain. Denies breast pain or discharge. Denies dysuria. Denies headache. Physical Exam <Mendez Campos MD - Last Filed: 04/08/21 07:23> General: Alert, oriented, no acute distress Cardiac: Regular rate and rhythm, normal S1, S2. No murmurs appreciated. Respiratory: Clear to auscultation b/l with good air flow entry, symmetric chest rise and fall. No wheezes or crackles. No increased work of breathing or accessory muscle use Abdomen: Soft, nontender, nondistended. Fundus firm and palpable at 2 cm below umbilicus. Surgical incision clean, dry and intact without erythema, warmth or drainage. Bowel sounds appreciated. No guarding or rebound. Skin: No rashes or lesions Extremities: Warm, dry, well-perfused with capillary refill <2s b/l. No lower extremity edema, erythema or swelling. Negative Bayron's sign b/l. Results & Data ([facility]) <Mendez Campos MD - Last Filed: 04/08/21 07:23> Vital Signs (Past 12 Hours) Vital Signs Temp Pulse Resp BP 04/07/21 23:35 36.9 C 81 18 04/07/21 19:35 36.8 C 69 18 125/79 <Reina Mcclain MD - Last Filed: 04/08/21 07:19> Co-Signing Physician Notes Resident Physician Supervision Note: I interviewed and examined the patient. Discussed with Dr. Campos and agree with findings and plan as documented in the note. Any exceptions or clarifications are listed here: [ ] Documented By: Reina Mcclain MD, FACOG Resident Activity Tracking <Mendez Campos MD - Last Filed: 04/08/21 07:23> Resident Involvement: Resident Care Provided Care Provided: OB Delivery
[2021-04-08 06:33] LABS: Hematocrit (blood only) 30.5 % (37-47); Hemoglobin 10.2 g/dL (12.0-16.0)
[2021-04-08] MEDS: FERROUS SULFATE 325 MG TAB PO SCH (08:12)
[2021-04-08] MEDS: PRENATAL VITAMIN 1 TAB PO SCH (08:12)
[2021-04-08] MEDS: DOCUSATE SODIUM 100 MG CAP PO SCH ×2 (08:12→20:12)
[2021-04-08] MEDS: SIMETHICONE 80 MG CHEW PO SCH ×4 (08:12→20:12)
[2021-04-08] MEDS ORDERED: bisacodyL 10 MG SUPP PR PRN (11:14)
[2021-04-09] MEDS: IBUPROFEN 600 MG TAB PO PRN ×2 (00:11→06:11)
--- NOTE | 2021-04-09 07:45 | Obstetrical Progress Note ---
Date of Service April 09, 2021 Assessment & Plan (1) Delivery by section: 26 yo POD3 from [facility] for arrest of descent, doing well -Meeting all pp milestones. Had isolate mild range BP last evening in the pp period, but no s/s pre-eclampsia so suspect it was pain related -A-/rubella immune/. Baby Rh neg -f/u 6 weeks for appt Subjective Ambulation: ambulating normally Voiding: no voiding problems Passing Gas:: Yes Diet Tolerance:: regular diet Lochia:: Small Feeding Type:: breast feeding Pain well managed with medication Review of Systems Denies fevers, chills, n/v, ROMERO, CP, SOB Physical Exam Constitutional WD/WN, vitals as above no acute distress Respiratory normal respiratory effort, lungs clear to auscultation Cardiovascular RRR, no murmur, no edema Gastrointestinal (Abdomen) Inspection/Auscultation: + abdominal surgical scar (c/d/i) Percussion/Palpation: abdomen soft; abdomen nontender fundus firm at umbilicus and NT Musculoskeletal BLE symmetric, nonerythematous, nontender Results & Data ([facility]) Vital Signs (Past 12 Hours) Vital Signs Temp Pulse Resp BP Pulse Ox 04/09/21 00:05 98.1 F 60 16 145/94 H 98 04/08/21 20:00 98.1 F 70 16 131/82 98
[2021-04-09] MEDS: FERROUS SULFATE 325 MG TAB PO SCH (09:16)
[2021-04-09] MEDS: DOCUSATE SODIUM 100 MG CAP PO SCH (09:16)
[2021-04-09] MEDS: PRENATAL VITAMIN 1 TAB PO SCH (09:16)
[2021-04-09] MEDS: SIMETHICONE 80 MG CHEW PO SCH (09:16)
--- NOTE | 2021-04-11 00:21 | Discharge Summary ---
Date of Service Date of admission: April 05, 2021 Date of admission: 04/09/21 Admission HPI Per Admitting Provider Patient is a 26 yo white female EDC 03/28[birth year] who presents at 41 1/7 weeks for induction of labor because of post term . was complicated because of IVF. Growth scans have been appropriate. GBS -negative blood type- A negative Discharge Data Consultations 04/05/21 11:06 Consult Anesthesiology Stat Procedures Performed Operation Date: 04/06/21 09:05 Actual Procedures p Section in LD; Delivery of live female child at 1002 (Main OR #3)(Bilateral) - Beata Knapp MD, [facility] Course (1) Failure of descent in labor, delivered, current hospitalization: (2) Encounter for induction of labor: (3) 41 weeks gestation of : The patient did end up dilating to complete but pushed for [id number] and no evidence of descent. and therefore section recommended. The patient underwent the above stated procedure without incident and her postoperative course and recovery was uncomplicated. On her postoperative day #3 she was tolerating a regular diet, voiding spontaneously, ambulating without problem and was using oral meds for adequate pain control. Her postoperative hemoglobin was 10.3, She was given written and verbal discharge instructions and told to followup in office at 6wks. She was given appropriate pain medicine prescriptions. Coding Level of Care Code None Diagnoses Failure of descent in labor, delivered, current hospitalization O62.2 Encounter for induction of labor Z34.90 41 weeks gestation of Z3A.41
== END 2021-04-09 12:35 | disposition home or self-care (01) | DRG 788 ==
LOC: 4S1 10:53 → 4S2 04-06 15:26